=== PATIENT | male | born 1985 | race Caucasian/White ===

== ENCOUNTER 2017-01-10 07:42 | Emergency (ER) | payer BC, SELFPAY ==
[2017-01-10] MEDS ORDERED: Lidocaine 1% 20 ML MDV ONE (07:57)
[2017-01-10] MEDS ORDERED: Sulfameth/Trimethoprim DS 800-160mg TAB ONE (08:29)
== END 2017-01-10 08:35 | disposition home or self-care (01) ==
LOC: NAV ERS 07:42
DX: L02.424 Furuncle of left upper limb (principal); F32.9 Major depressive disorder, single episode, unspecified; F98.8 Other specified behavioral and emotional disorders with onset usually occurring in childhood and adolescence; Z79.899 Other long term (current) drug therapy
CPT/HCPCS: 10060; 87070; 87077; 87186; 87205; J2001

== ENCOUNTER 2017-02-24 21:27 | Emergency (ER) | payer SELFPAY ==
[2017-02-24] MEDS ORDERED: Lidocaine 1% w/Epinephrine 1:100K 20 ML VIAL ONE (21:44)
[2017-02-24] MEDS ORDERED: Sulfameth/Trimethoprim DS 800-160mg TAB ONE (22:32)
== END 2017-02-24 22:39 | disposition home or self-care (01) ==
LOC: NAV ERS 21:27
DX: L02.416 Cutaneous abscess of left lower limb (principal); L03.116 Cellulitis of left lower limb; F32.9 Major depressive disorder, single episode, unspecified; Z79.899 Other long term (current) drug therapy
CPT/HCPCS: 10060; J2001

== ENCOUNTER 2018-04-25 13:59 | Outpatient (CLI) | payer OTHER ==
--- NOTE | 2018-04-25 14:58 | RAD ---
THREE VIEWS LUMBAR SPINE: 04/25/18 HISTORY: Disability evaluation. FINDINGS: There are five lumbar type vertebrae. There is mild disc degenerative disease involving the lumbar sp ine. Spinal alignment is preserved. No acute fracture or subluxation is evident. 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 POS: SONI
== END 2018-04-25 14:00 | disposition home or self-care (01) ==
LOC: NAV RAD 13:59
PROVIDERS: ATTEND Family Medicine
DX: Z02.71 Encounter for disability determination (principal); M51.17 Intervertebral disc disorders with radiculopathy, lumbosacral region; M51.16 Intervertebral disc disorders with radiculopathy, lumbar region
CPT/HCPCS: 72100

== ENCOUNTER 2018-05-04 01:50 | Emergency (ER) | payer SELFPAY ==
[2018-05-04] MEDS ORDERED: Lidocaine 1% (PF) 30 ML VIAL ONE (02:06)
[2018-05-04] MEDS ORDERED: Lidocaine 1% w/Epinephrine 1:100K 30 ML VIAL ONE (02:39)
[2018-05-04] MEDS ORDERED: Sulfameth/Trimethoprim DS 800-160mg TAB ONE (03:06)
== END 2018-05-04 03:15 | disposition home or self-care (01) ==
LOC: NAV ERS 01:50
DX: L02.31 Cutaneous abscess of buttock (principal); F41.9 Anxiety disorder, unspecified; F32.9 Major depressive disorder, single episode, unspecified; F98.8 Other specified behavioral and emotional disorders with onset usually occurring in childhood and adolescence; Z79.899 Other long term (current) drug therapy
CPT/HCPCS: 10060; J2001

== ENCOUNTER 2018-11-07 13:58 | Emergency (ER) | payer SELFPAY | END 2018-11-07 15:15 | disposition home or self-care (01) | LOC: NAV ERS 13:58 | DX: J03.90 Acute tonsillitis, unspecified (principal); F98.8 Other specified behavioral and emotional disorders with onset usually occurring in childhood and adolescence; F41.9 Anxiety disorder, unspecified; F17.210 Nicotine dependence, cigarettes, uncomplicated; Z79.899 Other long term (current) drug therapy | CPT/HCPCS: 87081; 87430; 99283 ==